=== PATIENT | female | born 1990 | race Caucasian/White ===

== ENCOUNTER → 2016-12-05 | Outpatient (CLI) | payer OTHER ==
[2016-12-05 18:17] LABS: BASO % 0.3 %; BASO ABS # 0.02 K/uL (0-0.2); COMPLETE YES; EOS % 4.2 %; HEMATOCRIT 36.9 % (37-47); IG% 0.2 %; LYMPH % 40.3 %; LYMPH ABS # 2.32 K/uL (1.2-3.4); MEAN CORPUSCULAR HGB CONC 32.5 g/dl (32-36); MEAN PLATELET VOLUME 10.8 fL (7.4-10.4); MONO % 8.7 %; NEUT % 46.3 %; PLATELET COUNT 252 K/uL (130-400); RED BLOOD COUNT 4.29 M/uL (4.2-5.4); WHITE BLOOD COUNT 5.76 K/uL (4.8-10.8)
[2016-12-05 19:35] LABS: ALT/SGPT 20 U/L (12-78); AST/SGOT 12 U/L (15-37); BLOOD UREA NITROGEN 15 mg/dl (7-18); BUN/CREATININE RATIO 20.3 (10-20); CALCIUM 8.8 mg/dl (8.5-10.1); CARBON DIOXIDE 26 mmol/L (21-32); CHLORIDE 106 mmol/L (98-107); CREATININE 0.74 mg/dl (0.60-1.20); GLUCOSE 94 mg/dl (70-99); POTASSIUM 3.6 mmol/L (3.5-5.1); SODIUM 141 mmol/L (136-145)
[2016-12-05 19:44] LABS: ALB/GLOB RATIO 1.3 (0.9-2); ALKALINE PHOSPHATASE 70 U/L (45-117); TOTAL IRON BINDING CAPACITY 405 mcg/dl (250-450)
== END | disposition home or self-care (01) ==
LOC: C.LABMFLN 14:49
PROVIDERS: ATTEND Family Medicine
DX: Z00.00 Encounter for general adult medical examination without abnormal findings (principal); D64.9 Anemia, unspecified; E03.9 Hypothyroidism, unspecified; E53.8 Deficiency of other specified B group vitamins

== ENCOUNTER → 2016-12-21 | Outpatient (CLI) | payer OTHER | END | disposition home or self-care (01) | LOC: C.LABMFLN 09:05 | PROVIDERS: ATTEND Family Medicine | DX: M25.561 Pain in right knee (principal); M25.562 Pain in left knee ==

== ENCOUNTER → 2017-02-24 | Outpatient (CLI) | payer OTHER ==
--- NOTE | 2017-02-24 10:53 | DIAGNOSTIC IMAGING REPORT ---
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 Low back pain. COMPARISON STUDY: None. FINDINGS: Bilateral nephrolithiasis. Multiple pelvic phleboliths. No fracture or subluxation within the thoracic or lumbar spine. The sacrum is intact. Paraspinal soft tissues are unremarkable. Disc spaces within the lumbar spine are preserved. Mild disc space narrowing within the upper to mid thoracic spine IMPRESSION: 1. No fracture or subluxation within the thoracic or lumbar spine. 2. 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 3. Bilateral nephrolithiasis. Electronically signed by: Howard Moralez M.D. 02/24/2017 10:52 AM Dictated Date/Time: 02/24/2017 10:49 AM
== END | disposition home or self-care (01) ==
LOC: C.RAD1850 10:22
PROVIDERS: ATTEND Internal Medicine Rheumatology
DX: M54.6 Pain in thoracic spine (principal); M41.9 Scoliosis, unspecified; Q79.6 Ehlers-Danlos syndromes